=== PATIENT | male | born 1965 | race Caucasian/White ===

== ENCOUNTER 2020-10-23 06:36 | Emergency (ER) | payer OTHER ==
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
[2020-10-23] MEDS ORDERED: Morphine 2 MG/ML SYRINGE IVPUSH PRN ×2 (07:17→07:34)
[2020-10-23] MEDS: Morphine 2 MG/ML SYRINGE IVPUSH PRN ×4 (07:21→07:44)
[2020-10-23] MEDS ORDERED: LORazepam 2 MG/ML SDV IVPUSH ONE (07:56)
[2020-10-23] MEDS ORDERED: LORazepam 2 MG/ML SDV ONE (08:05)
[2020-10-23] MEDS: HYDROmorphone 2 MG/ML SDV IVPUSH PRN ×2 (08:12→08:32)
[2020-10-23] MEDS ORDERED: HYDROmorphone 2 MG/ML SDV ONE (08:19)
[2020-10-23] MEDS ORDERED: Labetalol 100 MG/20 ML MDV IVPUSH ONE (11:08)
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
--- NOTE | 2020-10-23 13:57 | CT ---
DATE OF SERVICE: 10/23/20 CLINICAL DATA: [facility] CERVICAL SPINE CT: Multislice axial acquisition from the base of the skull to the top of T5 was performed. Axial images and sagittal and coronal reformations are reviewed. Motion artifact does degrade image quality. The vertebral bodies are of average height and in good alignment. No acute fracture or dislocation noted. Very slight retrolisthesis of C4 on 5 and slight anterolisthesis of C5 on 6. There is facet joint hypertrophy at multiple levels. There is mild bony encroachment of the neural foramen at the C4-5 and C6-7 levels on the right. No lytic or blastic bone lesions. The soft tissues are unremarkable. The visualized lung apices are clear. [id number] [facility]
== END 2020-10-23 08:57 ==
LOC: LB.ED 06:36
DX: S32.011A Stable burst fracture of first lumbar vertebra, initial encounter for closed fracture (principal); S02.2XXA Fracture of nasal bones, initial encounter for closed fracture; S02.85XA Fracture of orbit, unspecified, initial encounter for closed fracture; S80.01XA Contusion of right knee, initial encounter; S20.212A Contusion of left front wall of thorax, initial encounter; S20.319A Abrasion of unspecified front wall of thorax, initial encounter; V48.6XXA Car passenger injured in noncollision transport accident in traffic accident, initial encounter
CPT/HCPCS: 36415; 51702; 70450; 71250; 72125; 74176; 80053; 80307; 81003; 85025; 85610; 93005; 96374; 96375; 99285; 99285-25; A0425; A0429; J1170; J2060; J2270; J3490